=== PATIENT | male | born 1975 | race Caucasian/White ===

== ENCOUNTER 2017-09-14 02:15 | Inpatient (IN) | payer OTHER ==
[~2017-09-14] VITALS: Ht 175.3 cm; Wt 116.3 kg
[2017-09-14] VITALS (7 sets, daily range): BP systolic 118–143; BP diastolic 80–92
[2017-09-14 02:55] LABS: BASOPHIL % 0.2 % (0-2); RED CELL DISTRIBUTION WIDTH 13.8 % (11.5-14.5)
[2017-09-14 02:56] LABS: PLATELET COUNT 486 x10^3mcL (130-400)
[2017-09-14 03:04] LABS: ALKALINE PHOSPHATASE 58 U/L (46-116); ALT/SGPT 24 U/L (16-63); AST/SGOT 19 U/L (15-37); CALCIUM 8.6 mg/dL (8.5-10.1); CARBON DIOXIDE 28.6 mmol/L (21-32); CHLORIDE SERUM 91 mmol/L (98-107); CREATININE SERUM 1.1 mg/dL (0.7-1.3); GFR1 > 60 mL/min; GLUCOSE SERUM 393 mg/dL (74-106); HDL CHOLESTEROL 35 mg/dL (40-60)
[2017-09-14 03:05] LABS: ALBUMIN 1.9 g/dL (3.4-5.0); CHOLESTEROL 130 mg/dL (<200); TOTAL PROTEIN, SERUM 9.2 g/dL (6.4-8.2)
[2017-09-14 03:11] LABS: SODIUM SERUM 125 mmol/L (136-145)
[2017-09-14 04:11] LABS: microscopic required? YES; urine erythrocyte TRACE (NEGATIVE)
[2017-09-14 05:21] LABS: AMPHETAMINE QUAL UR NONE DETECTED (NEG <=1000)
[2017-09-14 05:23] LABS: MAGNESIUM 1.9 mg/dL (1.8-2.4); PHOSPHOROUS 2.1 mg/dL (2.5-4.9)
[2017-09-14 05:29] LABS: T3 TOTAL 0.64 ng/mL
[2017-09-14 05:33] LABS: FREE T4 1.67 ng/dL (0.76-1.46); FREE THYROXINE INDEX 3.7 ug/dL (1.4-4.5); T4(THYROXINE) 9.2 ug/dL (4.7-13.3)
[2017-09-14] MEDS ORDERED: ROC1I IV (18:22)
[2017-09-14] MEDS ORDERED: MOR10I IV (18:23)
[2017-09-14] MEDS ORDERED: TEN25 PO (18:23)
[2017-09-14] MEDS ORDERED: APAP/HYDROCODON1 T13 PO (18:23)
[2017-09-14] MEDS ORDERED: TYL325 PO (18:24)
[2017-09-14] MEDS ORDERED: WELSR PO (18:24)
[2017-09-14] MEDS ORDERED: RIS0.25 PO (18:25)
[2017-09-14] MEDS ORDERED: BG FS (18:25)
[2017-09-14] MEDS ORDERED: COL100 PO (18:26)
[2017-09-14] MEDS ORDERED: DEXPF IV (18:26)
[2017-09-14] MEDS ORDERED: ZOFI IV (18:27)
[2017-09-14] MEDS ORDERED: HUMULIN R100 U/1 M1 SC (18:28)
[2017-09-14] MEDS ORDERED: LAC PO (18:28)
[2017-09-14] MEDS ORDERED: LEVEMIR100 U/M1 SQ (18:28)
[2017-09-14] MEDS ORDERED: THERA TABS1 TAB PO (18:29)
== END 2017-09-14 21:10 | disposition short-term general hospital (02) | DRG 637 ==
LOC: ED 02:15 → EDBEDREQ 04:52 → DU 04:53
PROVIDERS: Emergency Medicine; Internal Medicine; ADMIT Family Medicine
DX: E11.65 Type 2 diabetes mellitus with hyperglycemia (principal); N17.0 Acute kidney failure with tubular necrosis; E43 Unspecified severe protein-calorie malnutrition; K68.12 Psoas muscle abscess; N39.0 Urinary tract infection, site not specified; R45.851 Suicidal ideations; T38.3X6A Underdosing of insulin and oral hypoglycemic [antidiabetic] drugs, initial encounter; N28.1 Cyst of kidney, acquired; J40 Bronchitis, not specified as acute or chronic; E86.0 Dehydration; E83.39 Other disorders of phosphorus metabolism; E05.90 Thyrotoxicosis, unspecified without thyrotoxic crisis or storm; F31.9 Bipolar disorder, unspecified; F41.1 Generalized anxiety disorder; I10 Essential (primary) hypertension; Q63.1 Lobulated, fused and horseshoe kidney; E66.9 Obesity, unspecified; Z68.38 Body mass index [BMI] 38.0-38.9, adult; Z87.442 Personal history of urinary calculi; Z91.120 Patient's intentional underdosing of medication regimen due to financial hardship; Y92.039 Unspecified place in apartment as the place of occurrence of the external cause
CPT/HCPCS: 82962; 83880; 84439; G0480; J0696; J1815; J1885; J2270; J2405; J7030; Q0092; Q9967